=== PATIENT | female | born 1995 | race Two or more races ===

== ENCOUNTER 2017-06-06 06:50 | Inpatient (IN) | payer OTHER ==
[~2017-06-06] VITALS: Ht 152.4 cm; Wt 63.7 kg
[2017-06-06] MEDS ORDERED: SODIUM CHLORIDE 0.9% 1,000 ML IVB ONE (07:16)
[2017-06-06] MEDS ORDERED: ONDANSETRON HCL 4 MG/2 ML VIAL IV ONE (07:30)
[2017-06-06 07:35] LABS: Basophils # (auto) 0 uL; Basophils % (auto) 0.2 % (0.0-2.0); CONDITION Y; Eosinophils # (auto) 0 uL; Eosinophils % (auto) 0.3 % (0.0-7.0); Hematocrit 39.2 % (36.0-46.0); Hemoglobin 13.5 g/dL (12.2-16.2); Lymphocytes # (auto) 0.7 uL; Lymphocytes % (auto) 10.1 % (10.0-50.0); Mean Corpuscular Hemoglobin 27.4 pg (28.0-32.0); Mean Corpuscular Hgb Conc. 34.5 g/dL (32.0-36.0); Mean Corpuscular Volume 79.4 fL (80.0-100.0); Mean Platelet Volume 8.4 fL (7.4-10.4); Monocytes # (auto) 0.4 uL; Monocytes % (auto) 5.7 % (0.0-12.0); Neutrophils # (auto) 5.8 uL; Neutrophils % (auto) 83.7 % (37.0-80.0); Platelet Count (auto) 247 10^3/uL (140-450); Red Cell Distribution Width 14.5 % (11.6-16.0); White Blood Cell 6.9 10^3/uL (4.4-10.8)
[2017-06-06 08:03] LABS: Urine Bilirubin Negative (Negative); Urine Blood TRACE /uL (Negative); Urine Color Yellow (Yellow); Urine Glucose Normal (Normal); Urine Ketone 1+ (Negative); Urine Nitrite Negative (Negative); Urine RBC <1 /hpf (0 - 4); Urine Squamous Epithelial Cell FEW /hpf (<5); Urine Urobilinogen Normal (Negative)
[2017-06-06 08:07] LABS: Albumin 3.8 g/dL (3.4-5.0); BUN/Creatinine Ratio 12.7; Bilirubin, Total 0.2 mg/dL (0.2-1.0); Calcium 8.9 mg/dL (8.5-10.1); Potassium 3.6 mmol/L (3.5-5.1); Total Protein 7.9 g/dL (6.4-8.2)
[2017-06-06] MEDS ORDERED: IOHEXOL 300 MG/ML 100ML BOTTLE IJ ONE (08:39)
[2017-06-06] MEDS ORDERED: DICYCLOMINE HCL 10 MG CAP PO ONE (08:45)
[2017-06-06] MEDS ORDERED: LORazepam 0.5 MG TAB PO PRN (10:00)
[2017-06-06] MEDS ORDERED: HYDROcodone-ACET 5/325MG TAB PO PRN (10:00)
[2017-06-06] MEDS ORDERED: cefTRIAXone 1GM/50ML D5W 50 ML IV ONE (10:00)
[2017-06-06] MEDS ORDERED: PROMETHAZINE HCL 25 MG/ML 1ML IV PRN (10:00)
[2017-06-06] MEDS ORDERED: MORPHINE SULF INJ 2 MG/ML SYRINGE 1ML IV PRN (10:00)
[2017-06-06] MEDS ORDERED: MORPHINE SULFATE 4 MG/ML SYRG IV PRN (10:00)
[2017-06-06] MEDS ORDERED: NITROGLYCERIN 0.4 MG SL TAB SL PRN (10:00)
[2017-06-06] MEDS ORDERED: TEMAZEPAM 15 MG CAP PO PRN (10:00)
[2017-06-06] MEDS: FAMOTIDINE (10MG/ML) 2ML VL IV SCH ×2 (10:20→21:54)
[2017-06-06] MEDS: SODIUM CHLORIDE 0.9% 1,000 ML IV SCH ×2 (10:20→11:46)
[2017-06-06] MEDS: metroNIDAZOLE 500MG/100ML 100 ML IV SCH ×3 (12:18→23:34)
[2017-06-06 17:00] VITALS: BP 120/71
[2017-06-06 20:00] VITALS: BP 114/68
[2017-06-06 21:23] VITALS: BP 114/68
[2017-06-07] VITALS (7 sets, daily range): BP systolic 94–123; BP diastolic 53–82
[2017-06-07 05:54] LABS: Basophils # (auto) 0 uL; Basophils % (auto) 0.6 % (0.0-2.0); CONDITION Y; Eosinophils # (auto) 0 uL; Eosinophils % (auto) 1.2 % (0.0-7.0); Hematocrit 33.2 % (36.0-46.0); Hemoglobin 11.3 g/dL (12.2-16.2); Lymphocytes # (auto) 1.4 uL; Lymphocytes % (auto) 48.4 % (10.0-50.0); Mean Corpuscular Hemoglobin 27.2 pg (28.0-32.0); Mean Corpuscular Volume 79.9 fL (80.0-100.0); Mean Platelet Volume 8.7 fL (7.4-10.4); Monocytes # (auto) 0.3 uL; Monocytes % (auto) 10.7 % (0.0-12.0); Neutrophils # (auto) 1.1 uL; Neutrophils % (auto) 39.1 % (37.0-80.0); Platelet Count (auto) 237 10^3/uL (140-450); White Blood Cell 2.9 10^3/uL (4.4-10.8)
[2017-06-07] MEDS: metroNIDAZOLE 500MG/100ML 100 ML IV SCH ×4 (06:06→23:51)
[2017-06-07] MEDS: cefTRIAXone 1GM/50ML D5W 50 ML IV SCH (09:18)
[2017-06-07] MEDS: FAMOTIDINE (10MG/ML) 2ML VL IV SCH ×2 (10:27→21:45)
[2017-06-07] MEDS: SODIUM CHLORIDE 0.9% 1,000 ML IV SCH ×2 (11:41→23:40)
[2017-06-07] MEDS: ACETAMINOPHEN 500 MG TAB PO PRN ×2 (14:53→21:47)
[2017-06-08 04:55] VITALS: BP 115/63
[2017-06-08] MEDS: metroNIDAZOLE 500MG/100ML 100 ML IV SCH ×2 (05:47→11:47)
[2017-06-08 06:16] LABS: Basophils # (auto) 0 uL; Basophils % (auto) 0.5 % (0.0-2.0); CONDITION Y; DEFINITIVE SEE PRINTOUT; Eosinophils # (auto) 0.1 uL; Eosinophils % (auto) 1.6 % (0.0-7.0); Hematocrit 31.5 % (36.0-46.0); Hemoglobin 10.8 g/dL (12.2-16.2); Lymphocytes # (auto) 1.8 uL; Mean Corpuscular Hemoglobin 27.1 pg (28.0-32.0); Mean Corpuscular Hgb Conc. 34.2 g/dL (32.0-36.0); Mean Corpuscular Volume 79.2 fL (80.0-100.0); Mean Platelet Volume 8.5 fL (7.4-10.4); Monocytes # (auto) 0.4 uL; Monocytes % (auto) 10.9 % (0.0-12.0); Neutrophils % (auto) 30.7 % (37.0-80.0); Platelet Count (auto) 243 10^3/uL (140-450); Red Cell Distribution Width 14.8 % (11.6-16.0); White Blood Cell 3.3 10^3/uL (4.4-10.8)
[2017-06-08 06:35] LABS: Lymphocytes % (auto) 56.3 % (10.0-50.0)
[2017-06-08 06:48] LABS: Potassium 3.7 mmol/L (3.5-5.1)
[2017-06-08 06:49] LABS: BUN/Creatinine Ratio 5.7; Bilirubin, Total 0.2 mg/dL (0.2-1.0); Calcium 8.2 mg/dL (8.5-10.1); Total Protein 6.2 g/dL (6.4-8.2)
[2017-06-08 08:19] VITALS: BP 110/73
[2017-06-08] MEDS: cefTRIAXone 1GM/50ML D5W 50 ML IV SCH (09:14)
[2017-06-08] MEDS: FAMOTIDINE (10MG/ML) 2ML VL IV SCH (09:51)
[2017-06-08 14:51] VITALS: BP 110/73
[2017-06-08 14:53] VITALS: BP 109/70
[2017-06-08] MEDS: ACETAMINOPHEN 500 MG TAB PO PRN (16:16)
[2017-06-08 16:41] VITALS: BP 109/70
== END 2017-06-08 17:45 | disposition home or self-care (01) | DRG 392 ==
LOC: ER 06:54 → TELE 06:55 → TELE-EAST 11:06
PROVIDERS: ADMIT Internal Medicine; ATTEND Internal Medicine
DX: A08.39 Other viral enteritis (principal); E86.0 Dehydration; Z86.19 Personal history of other infectious and parasitic diseases; Z83.3 Family history of diabetes mellitus; Z83.79 Family history of other diseases of the digestive system
CPT/HCPCS: 36415; 74177; 80053; 81001; 81025; 82150; 83605; 83690; 85025; 85048; 85652; 86141; 87040; 87045; 87493; 87899; 94761; 96365; 96366; 96375; J0696; J2405; J3490

== ENCOUNTER → 2020-02-15 | Outpatient (CLI) | payer OTHER | END | disposition home or self-care (01) | LOC: LAB 07:13 | PROVIDERS: ATTEND Nurse Practitioner Family | DX: Z03.818 Encounter for observation for suspected exposure to other biological agents ruled out (principal) | CPT/HCPCS: C9803; U0003 ==

== ENCOUNTER → 2022-09-03 | Outpatient (CLI) | payer BC ==
[2022-09-03 13:30] LABS: Basophils # (auto) 0 10 ^3/uL (0-0.2); Basophils % (auto) 0.9 % (0.0-2.0); Eosinophils # (auto) 0.1 10 ^3/uL (0-0.8); Eosinophils % (auto) 1.9 % (0.0-7.0); Hematocrit 36.2 % (36.0-46.0); Hemoglobin 12.5 g/dL (12.2-16.2); Lymphocytes # (auto) 1.2 10 ^3/uL (0.4-5.4); Mean Corpuscular Hemoglobin 28.9 pg (28.0-32.0); Mean Corpuscular Hgb Conc. 34.4 g/dL (32.0-36.0); Mean Corpuscular Volume 84.2 fL (80.0-100.0); Monocytes # (auto) 0.3 10 ^3/uL (0-1.3); Monocytes % (auto) 7.1 % (0.0-12.0); Neutrophils # (auto) 2.3 10 ^3/uL (1.6-8.6); Neutrophils % (auto) 59.1 % (37.0-80.0); Nucleated Red Blood Cells % 0.1 %; Red Blood Cells 4.31 10^6/uL (4.0-5.20); Red Cell Distribution Width 13.4 % (11.8-14.3); White Blood Cell 3.9 10^3/uL (4.4-10.8)
[2022-09-03 14:05] LABS: Calcium 8.9 mg/dL (8.5-10.1); Potassium 3.9 mmol/L (3.5-5.1)
[2022-09-03 14:19] LABS: BUN/Creatinine Ratio 13.6; Bilirubin, Total 0.3 mg/dL (0.2-1.0); Total Protein 7.7 g/dL (6.4-8.2)
== END | disposition home or self-care (01) ==
LOC: LAB 12:48
PROVIDERS: ATTEND Nurse Practitioner Family
DX: L65.9 Nonscarring hair loss, unspecified (principal); D72.819 Decreased white blood cell count, unspecified; E56.9 Vitamin deficiency, unspecified; F43.9 Reaction to severe stress, unspecified
CPT/HCPCS: 36415; 80053; 82306; 84439; 84443; 85025

== ENCOUNTER → 2023-01-10 | Outpatient (CLI) | payer BC ==
[2023-01-10 14:57] LABS: Basophils # (auto) 0 10 ^3/uL (0-0.2); Eosinophils # (auto) 0.1 10 ^3/uL (0-0.8); Lymphocytes # (auto) 1.5 10 ^3/uL (0.4-5.4); Monocytes # (auto) 0.3 10 ^3/uL (0-1.3); Nucleated Red Blood Cells % 0.3 %
[2023-01-10 14:59] LABS: Basophils % (auto) 0.5 % (0.0-2.0); Hematocrit 38.4 % (36.0-46.0); Hemoglobin 13.5 g/dL (12.2-16.2); Lymphocytes % (auto) 28.2 % (10.0-50.0); Mean Corpuscular Hemoglobin 27.1 pg (28.0-32.0); Mean Corpuscular Hgb Conc. 35.1 g/dL (32.0-36.0); Mean Corpuscular Volume 77.3 fL (80.0-100.0); Monocytes % (auto) 5.7 % (0.0-12.0); Neutrophils # (auto) 3.5 10 ^3/uL (1.6-8.6); Neutrophils % (auto) 64.6 % (37.0-80.0); Red Blood Cells 4.96 10^6/uL (4.0-5.20); Red Cell Distribution Width 13.7 % (11.8-14.3); White Blood Cell 5.4 10^3/uL (4.4-10.8)
[2023-01-10 15:46] LABS: Free T3 3.73 pg/mL (2.3-4.2); Free T4 (Free Thyroxine) 1.55 ng/dL (0.89-1.76)
[2023-01-10 15:49] LABS: Potassium 3.8 mmol/L (3.5-5.1)
[2023-01-10 16:02] LABS: Albumin 3.9 g/dL (3.4-5.0); Bilirubin, Total 0.4 mg/dL (0.2-1.0); Total Protein 7.4 g/dL (6.4-8.2)
== END | disposition home or self-care (01) ==
LOC: LAB 14:40
PROVIDERS: ATTEND Internal Medicine Endocrinology, Diabetes & Metabolism
DX: E05.90 Thyrotoxicosis, unspecified without thyrotoxic crisis or storm (principal)
CPT/HCPCS: 36415; 80053; 84439; 84443; 84481; 85025; 86376; 86800

== ENCOUNTER → 2023-03-10 | Outpatient (CLI) | payer BC ==
[2023-03-10 14:44] LABS: Free T4 (Free Thyroxine) 0.8 ng/dL (0.89-1.76)
[2023-03-10 14:45] LABS: Free T3 2.57 pg/mL (2.3-4.2)
== END | disposition home or self-care (01) ==
LOC: LAB 13:48
PROVIDERS: ATTEND Internal Medicine Endocrinology, Diabetes & Metabolism
DX: E05.90 Thyrotoxicosis, unspecified without thyrotoxic crisis or storm (principal)
CPT/HCPCS: 36415; 84439; 84443; 84481; 86800

== ENCOUNTER → 2023-07-03 | Outpatient (CLI) | payer BC ==
[2023-07-03 07:55] LABS: Basophils # (auto) 0 10 ^3/uL (0-0.2); Basophils % (auto) 0.6 % (0.0-2.0); Eosinophils # (auto) 0.1 10 ^3/uL (0-0.8); Eosinophils % (auto) 1.8 % (0.0-7.0); Hematocrit 39.2 % (36.0-46.0); Hemoglobin 13.4 g/dL (12.2-16.2); Lymphocytes # (auto) 1.8 10 ^3/uL (0.4-5.4); Mean Corpuscular Hemoglobin 29.3 pg (28.0-32.0); Mean Corpuscular Hgb Conc. 34.1 g/dL (32.0-36.0); Mean Corpuscular Volume 85.9 fL (80.0-100.0); Monocytes # (auto) 0.3 10 ^3/uL (0-1.3); Neutrophils # (auto) 2.4 10 ^3/uL (1.6-8.6); Neutrophils % (auto) 51.6 % (37.0-80.0); Nucleated Red Blood Cells % 0.1 %; Red Blood Cells 4.56 10^6/uL (4.0-5.20); Red Cell Distribution Width 12.8 % (11.8-14.3); White Blood Cell 4.7 10^3/uL (4.4-10.8)
[2023-07-03 08:38] LABS: Alanine Aminotransferase 15 U/L (7-40); Albumin 4.6 g/dL (3.2-4.8); Alkaline Phosphatase 64 U/L (46-116); Anion Gap 7.1 (5-15); Aspartate Aminotransferase 9 U/L (13-40); Calcium 9.5 mg/dL (8.5-10.1); Carbon Dioxide 25.9 mmol/L (20-30); Chloride 105 mmol/L (98-107); Cholesterol 146 mg/dL (< 200); Glucose 93 mg/dL (74-106); Potassium 4.4 mmol/L (3.5-5.1); Sodium 138 mmol/L (136-145)
[2023-07-03 08:40] LABS: BUN/Creatinine Ratio 16.1 (10.0-20.0); Blood Urea Nitrogen 10 mg/dL (9-23); LDL Cholesterol 72 mg/dL (< 100); Triglycerides 71 mg/dL (< 150)
[2023-07-03 08:41] LABS: HDL Cholesterol 68 mg/dL (40-59)
[2023-07-03 08:42] LABS: Bilirubin, Total 0.5 mg/dL (0.2-1.0); Total Protein 7.1 g/dL (5.7-8.2)
== END | disposition home or self-care (01) ==
LOC: LAB 07:28
PROVIDERS: ATTEND Nurse Practitioner Family
DX: D72.819 Decreased white blood cell count, unspecified (principal); E55.9 Vitamin D deficiency, unspecified; E03.9 Hypothyroidism, unspecified
CPT/HCPCS: 36415; 80053; 80061; 82306; 84439; 84443; 85025

== ENCOUNTER → 2023-08-12 | Outpatient (CLI) | payer BC ==
[2023-08-12 08:18] LABS: Alanine Aminotransferase 13 U/L (7-40); Albumin 4.6 g/dL (3.2-4.8); Alkaline Phosphatase 55 U/L (46-116); Anion Gap 7 (5-15); Aspartate Aminotransferase 14 U/L (13-40); BUN/Creatinine Ratio 13.4 (10.0-20.0); Blood Urea Nitrogen 9 mg/dL (9-23); Calcium 9.6 mg/dL (8.5-10.1); Carbon Dioxide 25 mmol/L (20-30); Chloride 104 mmol/L (98-107); Glucose 96 mg/dL (74-106); Sodium 136 mmol/L (136-145)
[2023-08-12 08:19] LABS: Bilirubin, Total 0.8 mg/dL (0.2-1.0); Total Protein 7.3 g/dL (5.7-8.2)
[2023-08-12 09:20] LABS: Free T3 2.93 pg/mL (2.3-4.2)
[2023-08-12 09:21] LABS: Free T4 (Free Thyroxine) 1.1 ng/dL (0.89-1.76)
== END | disposition home or self-care (01) ==
LOC: LAB 07:13
PROVIDERS: ATTEND Internal Medicine Endocrinology, Diabetes & Metabolism
DX: E05.90 Thyrotoxicosis, unspecified without thyrotoxic crisis or storm (principal)
CPT/HCPCS: 36415; 80053; 84439; 84443; 84481

== ENCOUNTER → 2023-08-26 | Outpatient (CLI) | payer BC ==
[2023-08-27 06:06] LABS: Varicella Zoster IgG Antibody <135 index (Immune >165)
[2023-08-27 07:07] LABS: Rubeola IgG Antibody <13.5 AU/mL (Immune >16.4)
[2023-08-28 09:25] LABS: Hepatitis B Surface Antibody Positive (Negative)
[2023-08-28 09:50] LABS: Hepatitis A Total Antibody Negative (Negative)
== END | disposition home or self-care (01) ==
LOC: LAB 10:37
DX: R23.0 Cyanosis (principal)
CPT/HCPCS: 36415; 86706; 86708; 86735; 86762; 86765; 86787

== ENCOUNTER → 2023-12-08 | Outpatient (CLI) | payer BC ==
[2023-12-08 07:42] LABS: Alanine Aminotransferase 12 U/L (7-40); Alkaline Phosphatase 53 U/L (46-116); Anion Gap 5 (5-15); BUN/Creatinine Ratio 11.4 (10.0-20.0); Blood Urea Nitrogen 8 mg/dL (9-23); Calcium 9.7 mg/dL (8.5-10.1); Carbon Dioxide 25 mmol/L (20-30); Chloride 106 mmol/L (98-107); Glucose 103 mg/dL (74-106); Potassium 4.2 mmol/L (3.5-5.1); Sodium 136 mmol/L (136-145)
[2023-12-08 07:43] LABS: Albumin 4.5 g/dL (3.2-4.8); Aspartate Aminotransferase 12 U/L (13-40); Bilirubin, Total 0.5 mg/dL (0.2-1.0); Total Protein 7.1 g/dL (5.7-8.2)
[2023-12-08 10:21] LABS: Free T3 3.1 pg/mL (2.3-4.2)
[2023-12-08 10:22] LABS: Free T4 (Free Thyroxine) 1.13 ng/dL (0.89-1.76)
== END | disposition home or self-care (01) ==
LOC: LAB 06:31
PROVIDERS: ATTEND Internal Medicine Endocrinology, Diabetes & Metabolism
DX: E05.90 Thyrotoxicosis, unspecified without thyrotoxic crisis or storm (principal)
CPT/HCPCS: 36415; 80053; 84439; 84443; 84481

== ENCOUNTER → 2024-05-18 | Outpatient (CLI) | payer MEDICAID ==
[2024-05-18 12:19] LABS: Basophils # (auto) 0 10 ^3/uL (0-0.2); Basophils % (auto) 0.7 % (0.0-2.0); Eosinophils # (auto) 0 10 ^3/uL (0-0.8); Hematocrit 36.8 % (36.0-46.0); Hemoglobin 12.6 g/dL (12.2-16.2); Lymphocytes # (auto) 1.3 10 ^3/uL (0.4-5.4); Lymphocytes % (auto) 27.6 % (10.0-50.0); Mean Corpuscular Hemoglobin 28.5 pg (28.0-32.0); Mean Corpuscular Hgb Conc. 34.1 g/dL (32.0-36.0); Mean Corpuscular Volume 83.5 fL (80.0-100.0); Monocytes # (auto) 0.3 10 ^3/uL (0-1.3); Neutrophils # (auto) 2.9 10 ^3/uL (1.6-8.6); Neutrophils % (auto) 64.7 % (37.0-80.0); Nucleated Red Blood Cells % 0.1 %; Red Blood Cells 4.41 10^6/uL (4.0-5.20); Red Cell Distribution Width 13.9 % (11.8-14.3); White Blood Cell 4.5 10^3/uL (4.4-10.8)
[2024-05-18 12:29] LABS: Urine Bacteria FEW /hpf (None Seen); Urine Blood Negative /uL (Negative); Urine Clarity Clear (Clear); Urine Color Colorless (Yellow); Urine Protein, UAD Negative (Negative); Urine Specific Gravity 1.006 (1.001-1.035); Urine Urobilinogen Normal (Negative); Urine WBC <1 /hpf (0 - 5)
[2024-05-18 13:11] LABS: Alanine Aminotransferase 12 U/L (7-40); Albumin 4.7 g/dL (3.2-4.8); Alkaline Phosphatase 53 U/L (46-116); Anion Gap 5 (5-15); Aspartate Aminotransferase < 8 U/L (13-40); BUN/Creatinine Ratio 11.3 (10.0-20.0); Blood Urea Nitrogen 7 mg/dL (9-23); Carbon Dioxide 27 mmol/L (20-30); Chloride 103 mmol/L (98-107); Glucose 82 mg/dL (74-106); Potassium 4.4 mmol/L (3.5-5.1); Sodium 135 mmol/L (136-145)
[2024-05-18 13:12] LABS: Bilirubin, Total 0.7 mg/dL (0.2-1.0); Total Protein 7.2 g/dL (5.7-8.2)
[2024-05-18 13:13] LABS: Free T4 (Free Thyroxine) 1.38 ng/dL (0.89-1.76); T3 Total 1.11 ng/mL (0.60-1.81)
== END | disposition home or self-care (01) ==
LOC: LAB 12:02
PROVIDERS: ATTEND Nurse Practitioner Family
DX: E05.90 Thyrotoxicosis, unspecified without thyrotoxic crisis or storm (principal); E55.9 Vitamin D deficiency, unspecified; D72.819 Decreased white blood cell count, unspecified
CPT/HCPCS: 36415; 80053; 81001; 82306; 84439; 84443; 84480; 85025

== ENCOUNTER → 2024-12-13 | Outpatient (CLI) | payer MEDICAID ==
[2024-12-13 09:56] LABS: Alanine Aminotransferase 10 U/L (7-40); Alkaline Phosphatase 62 U/L (46-116); Anion Gap 8 (5-15); BUN/Creatinine Ratio 14.1 (10.0-20.0); Blood Urea Nitrogen 10 mg/dL (9-23); Calcium 10.1 mg/dL (8.7-10.4); Carbon Dioxide 26 mmol/L (20-31); Chloride 104 mmol/L (98-107); Potassium 3.9 mmol/L (3.5-5.1); Sodium 138 mmol/L (136-145); Total Protein 7.5 g/dL (5.7-8.2)
[2024-12-13 10:17] LABS: Aspartate Aminotransferase 11 U/L (13-40); Bilirubin, Total 0.3 mg/dL (0.2-1.0); Glucose 73 mg/dL (74-106)
[2024-12-13 11:50] LABS: Free T3 3.77 pg/mL (2.3-4.2); T3 Total 1.08 ng/mL (0.60-1.81)
== END | disposition home or self-care (01) ==
LOC: LAB 07:09
PROVIDERS: ATTEND Internal Medicine Endocrinology, Diabetes & Metabolism
DX: E03.9 Hypothyroidism, unspecified (principal)
CPT/HCPCS: 36415; 80053; 84443; 84480; 84481

== ENCOUNTER 2025-09-16 05:52 | Outpatient (CLI) | payer MEDICAID | END 2025-09-16 17:00 | disposition home or self-care (01) | LOC: LAB 05:52 | PROVIDERS: ATTEND Nurse Practitioner Family | DX: N39.0 Urinary tract infection, site not specified (principal) | CPT/HCPCS: 87086 ==

== ENCOUNTER 2025-09-22 15:12 | Outpatient (CLI) | payer MEDICAID ==
[2025-09-22 16:52] LABS: Urine Protein, UAD Negative (Negative)
== END 2025-09-22 17:00 | disposition home or self-care (01) ==
LOC: LAB 15:12
PROVIDERS: ATTEND Nurse Practitioner Family
DX: N39.0 Urinary tract infection, site not specified (principal)
CPT/HCPCS: 81001; 87086